=== PATIENT | male | born 1970 | race Caucasian/White ===

== ENCOUNTER 2019-03-25 05:28 | Day surgery (SDC) | payer BC ==
[2019-03-17 10:46] LABS: BASOPHILS % (AUTO) 0.4 % (0-1); EOSINOPHILS # (AUTO) 0.1 X10'3 (0-0.9); EOSINOPHILS % (AUTO) 1.2 % (0-6); LYMPHOCYTES % (AUTO) 29.2 % (21-51); MEAN CORPUSCULAR HEMOGLOBIN 27.2 PG (27.0-31.0); MEAN CORPUSCULAR HGB CONC 33.5 g/dL (33.0-36.5); MEAN CORPUSCULAR VOLUME 81.3 FL (78-98); MEAN PLATELET VOLUME 7.9 FL (7.4-10.4); MONOCYTES # (AUTO) 0.5 X10'3 (0-0.9); MONOCYTES % (AUTO) 7.8 % (2-12); NEUTROPHILS # (AUTO) 4.2 X10'3 (1.8-7.7); NEUTROPHILS % (AUTO) 61.4 % (42-75); PRE OP HEMATOCRIT 44.9 % (42.0-52.0); PRE OP HEMOGLOBIN 15.1 g/dL (14.0-17.9); PRE OP PLATELET COUNT 320 X10'3 (140-440); RED BLOOD COUNT 5.53 X10'6 (4.70-6.10); RED CELL DISTRIBUTION WIDTH 14.9 % (11.5-14.5)
[2019-03-17 11:09] LABS: ALBUMIN 3.9 G/DL (3.4-5.0); ALBUMIN/GLOBULIN RATIO 1.1 (1.1-1.5); ALKALINE PHOSPHATASE 48 IU/L (46-116); BLOOD UREA NITROGEN 17 MG/DL (7-18); CALCIUM 9.1 MG/DL (8.5-10.1); CHLORIDE 105 MMOL/L (99-107); PRE OP ALT 32 U/L (30-65); PRE OP ANION GAP 6 (8-16); PRE OP AST 16 U/L (10-37); PRE OP BILIRUB, TOTAL 0.4 MG/DL (0.0-1.0); PRE OP GLUCOSE 93 MG/DL (70-104); PRE OP POTASSIUM 3.6 MMOL/L (3.4-5.1); PRE OP SODIUM 139 MMOL/L (135-145); TOTAL CARBON DIOXIDE 27.9 MMOL/L (24-32); TOTAL PROTEIN 7.5 G/DL (6.4-8.2); eGFR 79 ML/MIN
[2019-03-17 11:19] LABS: PRE OP PROTIME 10.3 SECONDS (9.0-12.0)
[2019-03-25] VITALS (19 sets, daily range): BP systolic 106–140; BP diastolic 60–90
[~2019-03-25] VITALS: Ht 170.2 cm; Wt 93.9 kg
[~2019-03-25 05:28] MED LIST: BUPR1PAT TOP; HYDR-4353 PO; HYDR12.5 PO; ringers solution, lacted 1,000 ML IV SCH
[2019-03-25] MEDS ORDERED: vancomycin inj 1,500 MG in normal saline 300ml IV soln IV ONE (05:30)
[2019-03-25] MEDS ORDERED: famotidine 20mg tablet PO ONE (05:30)
[2019-03-25] MEDS ORDERED: cefazolin/dext.iso 2gm/100 ML IV ONE (05:30)
[2019-03-25] MEDS ORDERED: LIDOcaine 1% (10mg/ml) 2ml vial ONE (05:43)
[2019-03-25] MEDS ORDERED: BUPIVAcaine/PF 2.5 mg/ml (0.25%) 30ml vial ONE (06:33)
[2019-03-25] MEDS ORDERED: ROPIVAcaine 0.5% (5mg/ml) 30ml vial ONE (07:10)
[2019-03-25] MEDS ORDERED: fentaNYL/PF 50MCG/1 ML 2ML syringe ONE (07:14)
[2019-03-25] MEDS ORDERED: midazolam 2 mg/2 ml injection ONE (07:15)
[2019-03-25] MEDS ORDERED: propofol inj 20 ML IV ONE (07:16)
[2019-03-25] MEDS ORDERED: LIDOcaine 1%/PF 5ML 10 MG/ML VIAL ONE (07:16)
[2019-03-25] MEDS ORDERED: ondansetron/PF 4mg/2ml inj ONE (07:16)
[2019-03-25] MEDS ORDERED: dexamethasone sod phosphate 4mg/ml inj. ONE (07:16)
[2019-03-25] MEDS ORDERED: labetalol 20mg/4ml (5mg/ml) syringe IV PRN (07:20)
[2019-03-25] MEDS ORDERED: ondansetron/PF 4mg/2ml inj IV PRN ×2 (07:20→10:55)
[2019-03-25] MEDS ORDERED: fentaNYL/PF 50MCG/1 ML 2ML syringe IV PRN ×2 (07:20)
[2019-03-25] MEDS ORDERED: ringers solution, lacted 1,000 ML IV SCH (07:20)
[2019-03-25] MEDS ORDERED: morphine 4 MG/ML inj SYRINge IV PRN ×2 (07:20)
[2019-03-25] MEDS ORDERED: hydrALAZINE 20mg/ml inj. IV PRN (07:20)
[2019-03-25] MEDS ORDERED: sevoflurane 250ml liquid IH ONE (07:27)
[2019-03-25] MEDS ORDERED: ketorolac trometh. 30mg/ml inj. ONE (07:27)
[2019-03-25] MEDS ORDERED: morphine 10mg/ml inj. ONE (10:35)
--- NOTE | 2019-03-25 10:50 | NUR ---
Received from OR via BED , accompanied by Anesthesiologist DR SANDERS and report given by Anesthesiolgist. PATIENT WAKING UP, DENIES PAIN, V/S WNL, NEUROVASCULAR CHECKLS INTACT, 18G PIV TO LUE, SCD ON, DRESSING TO RIGHT SHOULDER CDI W/ COLD POWDER PACK
[2019-03-25] MEDS ORDERED: diphenhydrAMINE 25mg capsule PO PRN ×2 (10:55)
[2019-03-25] MEDS ORDERED: non-formulary drug (Buprenorphine (Butrans) 1 PATCH) TOP SCH (10:55)
[2019-03-25] MEDS ORDERED: bisacodyl 10mg suppository rectal RC PRN (10:55)
[2019-03-25] MEDS ORDERED: magnesium hydroxide 30ml (MOM) UD suspension PO PRN (10:55)
[2019-03-25] MEDS ORDERED: acetaminophen 325mg tablet PO PRN (10:55)
[2019-03-25] MEDS ORDERED: HYDROcodone/acetaminophen 10/325mg tab PO PRN (10:55)
--- NOTE | 2019-03-25 11:08 | NUR ---
Patient in room . I have received report from Cesar in recovery, and had the opportunity to ask questions and assume patient care.
[2019-03-25] MEDS ORDERED: BUTRANS 20 MCG/HR TOP SCH (11:14)
--- NOTE | 2019-03-25 11:50 | NUR ---
PATIENT A&OX4, DENIES PAIN, V/S WNL, NEUROVASCULAR CHECKLS INTACT, 18G PIV TO LUE, SCD ON, DRESSING TO RIGHT SHOULDER CDI W/ COLD POWDER PACK , PATIENT TRANSFERED TO ORTHO ROOM AND HOOKED UP TO MONITORS AND REPORT GIVEN TO BURR BENCH HAND WHO HAS TAKEN OVER PATIENT CARE.
--- NOTE | 2019-03-25 11:52 | NUR ---
Patient arrived, tucked in, post op vitals started
[2019-03-25] MEDS: ceFAZolin 1GM/D5W- ADD-VANTAGE 50 ML IV SCH (16:10)
[2019-03-25] MEDS: potassium Cl 20mEq in NS 1,000 ML IV SCH (16:10)
--- NOTE | 2019-03-25 18:05 | NUR ---
Problems reprioritized. Patient report given, questions answered & plan of care reviewed with Teresa AYALA.
--- NOTE | 2019-03-25 18:26 | NUR ---
Problems reprioritized. Patient report given, questions answered & plan of care reviewed with Teresa AYALA.
--- NOTE | 2019-03-25 18:36 | NUR ---
Patient in room ORTHO 4016. I have received report from JAMIE Dillon and had the opportunity to ask questions and assume patient care.
[2019-03-25] MEDS ORDERED: vancomycin/NS 1 GM ADD-VANTAGE 250 ML IV SCH (20:00)
[2019-03-25] MEDS ORDERED: sennosides 8.6mg tablet PO SCH (21:00)
[2019-03-26] MEDS: potassium Cl 20mEq in NS 1,000 ML IV SCH ×2 (00:13→13:33)
[2019-03-26] MEDS: ceFAZolin 1GM/D5W- ADD-VANTAGE 50 ML IV SCH (00:19)
[2019-03-26] MEDS: HYDROcodone/acetaminophen 10/325mg tab PO PRN ×3 (00:30→08:17)
[2019-03-26 02:00] VITALS: BP 113/80
[2019-03-26] MEDS: ketorolac trometh. 30mg/ml inj. IV SCH ×3 (02:00→14:05)
[2019-03-26 06:00] VITALS: BP 120/84
--- NOTE | 2019-03-26 06:19 | NUR ---
Problems reprioritized. Patient report given, questions answered & plan of care reviewed with JAMIE Navarrete.
--- NOTE | 2019-03-26 07:21 | NUR ---
call to dr ward answering service re pain 05/04. I was told that Dr Bedolla would be covering. Will return call to answering service if no answer in 20 minutes
[2019-03-26] MEDS ORDERED: HYDROchlorothiazide 12.5mg capsule PO SCH (08:00)
[2019-03-26] MEDS ORDERED: oxyCODONE/APAP 10/325mg tablet PO PRN ×2 (09:20)
[2019-03-26] MEDS ORDERED: HYDROmorphone 2mg/ml vial IV PRN (09:20)
[2019-03-26] MEDS ORDERED: HYDROmorphone 1 mg/ml syringe IV PRN (09:36)
[2019-03-26 10:00] VITALS: BP 139/90
== END 2019-03-26 17:00 | disposition home or self-care (01) ==
LOC: PAS 05:28 → ORTHO 4S 10:53 → PAS 03-26 17:00
PROVIDERS: ATTEND Orthopaedic Surgery
DX: S46.011A Strain of muscle(s) and tendon(s) of the rotator cuff of right shoulder, initial encounter (principal); M75.21 Bicipital tendinitis, right shoulder; M19.011 Primary osteoarthritis, right shoulder; F17.290 Nicotine dependence, other tobacco product, uncomplicated; G89.18 Other acute postprocedural pain; I10 Essential (primary) hypertension; E66.9 Obesity, unspecified; Z68.32 Body mass index [BMI] 32.0-32.9, adult; Z88.8 Allergy status to other drugs, medicaments and biological substances; Z87.442 Personal history of urinary calculi; Z79.01 Long term (current) use of anticoagulants; Z79.899 Other long term (current) drug therapy; X58.XXXA Exposure to other specified factors, initial encounter; Y93.89 Activity, other specified; Y92.89 Other specified places as the place of occurrence of the external cause; Y99.8 Other external cause status
CPT/HCPCS: 23120; 23130; 23412; 24340; 36415; 64415; 76942; 80053; 82948; 85025; 85610; 85730; 93005; 97110; 97116; 97162; A6223; C1713; J0690; J1100; J1170; J1885; J2001; J2250; J2270; J2405; J2704; J3010; J3370; J3480; J3490; J7120; A4565; A4618; A6253; A6449; A7000; G0378; J2795